=== PATIENT | female | born 1985 | race Caucasian/White ===

== ENCOUNTER 2018-06-13 07:20 | Inpatient (IN) | payer OTHER ==
--- NOTE | 2018-06-13 08:20 | OBADHP ---
Datetime: 06/13/2018 08:15 IP Adm Impression Other: early labor """Decresased Fm Extremities - PN: Normal Abdomen - PN: Abnormal Back - PN: Normal Breast - PN: Not Done Lungs - PN: Normal Heart - PN: Normal Thyroid - PN: Normal Neurologic - PN: Normal HEENT - PN: Normal General - PN: Normal Presentation-Admit: C FHR - Baseline A Provider: 150 Membranes, Provider: Intact Contraction Comments Provider: irreg Comments, ACOG Physical Exam: Abd soft NT, gravid, fundus at term ext no calf tenderness Gestation - Est Wks by US: 41.0 Pool Provider: Negative IP Hx Assessment: The History has been Reviewed and is Current IP Chief Complaint: Uterine contractions; Decreased movement NICHD Accel Fetus A IP Provider: [id number] NICHD Decel Fetus A IP Provider: None Dilatation, Provider: 2cm Effacement, Provider: 50 Genitourinary Exam: Normal DTRs - PN: Normal EGA AdmitDate IP: 41.0 IP Adm Impression: Postterm, intrauterine IP Admit Plan: Admit to unit; Initiate labor augmentation protocol
[2018-06-13 08:24] VITALS: BMI 25.7
[2018-06-13] MEDS: Lactated Ringer's 1,000 ML IV SCH ×2 (08:30→16:00)
[2018-06-13 09:12] LABS: BASO % 0.6 % (0.0-2.0); EOS % 0.6 % (0.0-4.0); HEMOGLOBIN 11.1 g/dL (12.0-16.0); LYMPH # 1.8 K/uL (1.0-4.3); LYMPH % 23.8 % (20.0-40.0); MEAN CELL VOLUME 93.2 fl (81.0-99.0); MEAN CORPUSCULAR HEMOGLOBIN 32.4 pg (27.0-31.0); MEAN CORPUSCULAR HGB CONC 34.8 g/dL (33.0-37.0); MONO # 0.7 K/uL (0.0-0.8); MONO % 8.7 % (0.0-10.0); NEUT % 66.3 % (50.0-75.0); RBC 3.41 Mil/uL (3.80-5.20); RED CELL DISTRIBUTION WIDTH 13.2 % (11.5-14.5); WHITE BLOOD COUNT 7.5 K/uL (4.8-10.8)
[2018-06-13 10:11] VITALS: RESP 18
[2018-06-13] MEDS ORDERED: Fentanyl/Bupivacaine HCl 250 ML EPI ONE (20:50)
[2018-06-14] MEDS ORDERED: Oxytocin 30 UNIT 30 UNITS/500 ML BAG IV ONE (02:59)
[2018-06-14] MEDS ORDERED: OXYTOCIN/0.9 % NS 20 UNIT/1,000 ML BAG IV SCH (03:00)
--- NOTE | 2018-06-14 05:02 | OBDS ---
DELIVERY PERSONNEL Delivery Doctor: Holli Becker MD Leather Staker: Gerald Bennett RN Anesthesiologist: Hoang Cosme MD MATERNAL INFORMATION Delivery Anesthesia: Local; Epidural Medications in Delivery: PITOCIN 30 UNITS IN 500 ML NS Estimated Blood Loss (ml): 250 Placenta Cultured: No Maternal Complications: None Provider Comments: Delivered a living baby girl appears term cried spontaneously 9/9, AF clear Placenta complete and intact Episiotomy repaired as above Uterus contracted well, rectal exam done n o defects Tolerated procedure well No complications LABOR SUMMARY EDC: 06/06/2018 00:00 No. Babies in Womb: 1 (Annotations: Data stored by CPN on behalf of user) Attempted: No (Annotations: Data stored by CPN on behalf of user) Labor Anesthesia: Epidural LABOR INFORMATION Reason for Induction: Postterm Reason for Induction Other: dec fm Onset of Labor: 06/13/2018 18:00 Complete Dilatation: 06/14/2018 02:45 Cervical Ripening Agents: Cervidil (Annotations: 10mg placed intravaginally by Dr. Gann as per Ciera Paredes request) Oxytocin: Induction Group B Beta Strep: Negative Antibiotics # of Doses: 0 Steroids Given: None Reason Steroids Not Administered: Not Applicable MEMBRANES Membranes Rupture Method: Spontaneous Rupture of Membranes: 06/13/2018 22:35 Length of Rupture (hrs): 5.85 Amniotic Fluid Color: Clear Amniotic Fluid Amount: Moderate Amniotic Fluid Odor: Normal STAGES OF LABOR Stage 1 hrs: 8 Stage 1 min: 45 Stage 2 hrs: 1 Stage 2 min: 41 Stage 3 hrs: 0 Stage 3 min: 3 Total Time in Labor hrs: 10 Total Time in Labor min: 29 VAGINAL DELIVERY Episiotomy: Median Laceration Extension: Second Degree Laceration Type: Perineal Laceration Repair: Yes Laceration Repair Note: medial episiotomy done 1-2 dg and repaired with 2-0 chromic interrupted for deep and continuosly for vagina and perineum no complications Initial Vag Sponge Count: 5 Final Vag Sponge Count: 5 Initial Vag Sharps Count: 2 Final Vag Sharps Count: 2 Sponge Count Correct: Yes Sharps Count Correct: Yes Count Comment: count correct and verified by tech and RN CSECTION DELIVERY Primary Indication: N/A Secondary Indication: N/A CSection Incision: N/A Uterine Closure: N/A BABY A INFORMATION Delivery Date/Time: 06/14/2018 04:26 Method of Delivery: Vaginal Born in Route : No : N/A Forceps: N/A Vacuum Extraction: N/A Shoulder Dystocia : No SHOULDER DYSTOCIA BABY A Delivery Date/Time: 06/14/2018 04:26 PRESENTATION/POSITION BABY A Presentation: Cephalic Cephalic Presentation: Vertex Breech Presentation: N/A PLACENTA INFORMATION BABY A Placenta Delivery Time : 06/14/2018 04:29 Placenta Method of Delivery: Spontaneous Placenta Status: Delivered SCORES BABY A Heart Rate 1 min: >100 bpm Resp Effort 1 min: Good Cry Reflex Irritability 1 min: Cough or Sneeze or Pulls Away Muscle Tone 1 min: Active Motion Color 1 min: Body [place], Extremities Blue Resuscitation Effort 1 min: Tactile Stimulation SCORE 1 MIN: 9 Heart Rate 5 min: >100 bpm Resp Effort 5 min: Good Cry Reflex Irritability 5 min: Cough or Sneeze or Pulls Away Muscle Tone 5 min: Active Motion Color 5 min: Body [place], Extremities Blue Resuscitation Effort 5 min: N/A SCORE 5 MIN: 9 INFANT INFORMATION BABY A Gestational Age at Delivery: 41.1 Gestational Status: Post-term Infant Outcome : Liveborn Infant Condition : Stable Sex: Female IDENTIFICATION/MEDS BABY A ID Band Number: [id number] ID Band Location: Left Leg; Left Arm WEIGHT/LENGTH BABY A Birthweight (gms): 3010 Infant Weight (lb): 6 Infant Weight (oz): 10 CORD INFORMATION BABY A No. Cord Vessels: 3 Nuchal Cord : N/A Suction: None
[2018-06-14] MEDS ORDERED: Benzocaine/Menthol SPRAY TOP PRN (05:04)
[2018-06-14] MEDS ORDERED: Oxycodone/Acetaminophen 5/325 mg Tab PO PRN (05:04)
[2018-06-15 06:53] LABS: BASO # 0.1 K/uL (0.0-0.2); BASO % 0.5 % (0.0-2.0); EOS # 0.1 K/uL (0.0-0.7); EOS % 0.7 % (0.0-4.0); HEMOGLOBIN 9.9 g/dL (12.0-16.0); LYMPH # 3.5 K/uL (1.0-4.3); LYMPH % 28.1 % (20.0-40.0); MEAN CELL VOLUME 94.5 fl (81.0-99.0); MEAN CORPUSCULAR HEMOGLOBIN 31.8 pg (27.0-31.0); MEAN CORPUSCULAR HGB CONC 33.6 g/dL (33.0-37.0); MONO # 0.9 K/uL (0.0-0.8); MONO % 7.1 % (0.0-10.0); NEUT % 63.6 % (50.0-75.0); NRBC % 0.1 % (0.0-0.0); RBC 3.11 Mil/uL (3.80-5.20); RED CELL DISTRIBUTION WIDTH 13.7 % (11.5-14.5); WHITE BLOOD COUNT 12.5 K/uL (4.8-10.8)
[2018-06-15] MEDS ORDERED: Hydrocortisone-Pramoxine 1%-1% Foam(10 gm) TOP SCH (13:00)
--- NOTE | 2018-06-16 12:00 | OBPPN ---
Datetime: 06/16/2018 11:53 PP Pain Prov: Within normal limits PP Pain Prov comment: no SOB chest or leg pains PP Nausea Prov: Denies PP Flatus Prov: Yes PP BM Prov: Yes PP Breasts Prov: Normal PP Lungs Prov: Normal PP Abdomen/Uterus Prov: Abnormal PP Lochia Prov: Normal PP Vulva/Perineum Prov: Abnormal PP CVA Tenderness Prov: Normal PP Extremities Prov: Normal PP C/S Incision Prov: Not Applicable PP Progress Prov: Normal PP Comments Phys Exam Prov: breast NE NT Abd soft not distended fundus firm below the umb NT; Perine um repaired Ext no calf tenderness PP Impression Prov: Normal progression PP Plan Prov: Discharge PP Progress Note Prov: D/C home with instructions and continue PNC VIt and iron IP PP Procedures: None Vital Signs Provider PP: Reviewed
--- NOTE | 2018-06-16 12:02 | OBDCSUM ---
Datetime: 06/16/2018 11:58 Discharged to, Provider: Home Follow up at, Provider: Dr Eugenio Rubin Instr Activity: Bedrest; May be up to bathroom; May be up for meals; May Shower Disch Instr Diet: Regular Discharge Instructions, Provider: Routine instructions given Discharge Diagnosis, Provider: Term Delivered Discharge Time: 06/16/2018 11:58 Follow up in weeks, Provider: 4-6 wks Disch Referrals: None Contraception discussed, Prov: Yes Disch Activity Restrictions: No exercising; No lifting; No driving; Minimize walking; Minimize stair -climbing; No sexual activity; Nothing in vagina - [place], tampons, douche Discharge Comment, Provider: Continue PNC vit and iron Contraception after Delivery: Undecided Datetime: 06/16/2018 11:19 Discharged to, Provider: Home Follow up at, Provider: Dr. Eugenio Rubin Instr Activity: Normal activity; May be up for meals; May Shower Disch Instr Diet: Regular Discharge Time: 06/16/2018 12:00 Follow up in weeks, Provider: in 5 to 6 weeks Disch Referrals: None Disch Activity Restrictions: No lifting; No sexual activity; Nothing in vagina - [place], tampon s, douche
[2018-06-16 17:58] VITALS: BP 105/58; PULSE 76; TEMP 98.1; O2SAT 99
== END 2018-06-16 13:30 | disposition home or self-care (01) | DRG 807 ==
LOC: H.EROB2 07:20 → H.EROB 08:07 → H.EROB2 08:24 → H.EROB 08:25 → H.L&D 13:31 → H.OB/GYN 06-14 08:00
PROVIDERS: ADMIT Specialist; ATTEND Specialist
PROC: 4A1HXCZ Monitoring of Products of Conception, Cardiac Rate, External Approach (ICD-10-PCS; 2018-06-13)
PROC: 10E0XZZ Delivery of Products of Conception, External Approach (ICD-10-PCS; principal; 2018-06-14)
PROC: 0W8NXZZ Division of Female Perineum, External Approach (ICD-10-PCS; 2018-06-14)
DX: O48.0 Post-term pregnancy (principal); Z37.0 Single live birth; Z3A.41 41 weeks gestation of pregnancy; O70.1 Second degree perineal laceration during delivery; O36.8130 Decreased fetal movements, third trimester, not applicable or unspecified